=== PATIENT | female | born 1990 | race Caucasian/White ===

== ENCOUNTER 2016-08-15 20:44 | Emergency (ER) | payer OTHER ==
[~2016-08-15] VITALS: Ht 157.5 cm; Wt 90.7 kg
[~2016-08-15 20:44] MED LIST: ACET500C PO; ACET50TA PO; CYAN1000 IM; DEPO PROVERA INJ; FERR325T OR; IBUP800T PO; MULTCAP PO; MULTIVIT PO; NEUR300C PO; PAME25CA PO
[2016-08-15] MEDS ORDERED: PRE-TAB3 PO (20:54)
[2016-08-15 22:21] LABS: CONTROL LINE HCG INT CTR LINE PRESENT
[2016-08-15] MEDS ORDERED: NS 1,000 ML IV ONE (22:45)
[2016-08-15 22:50] LABS: HCG, SERUM QUANTITATIVE 1586 MIU/ML
[2016-08-15 22:59] LABS: BASO % 0.5 % (0.0-1.0); EOS # 0.2 K/mm3 (0.0-0.50); EOS % 2.1 % (0.0-3.0); LARGE UNSTAINED CELL # 0.1 K/mm3 (0.0-0.4); LARGE UNSTAINED CELL % 1.2 % (0.0-4.0); LYMPH # 2.7 K/mm3 (1.5-6.5); LYMPH % 28.6 % (24.0-44.0); MEAN CORPUSCULAR HEMOGLOBIN 29.9 pg (27.0-33.0); MEAN CORPUSCULAR HGB CONC 34.2 g/dl (32.0-36.5); MEAN CORPUSCULAR VOLUME 87.4 fl (80.0-96.0); MONO # 0.5 K/mm3 (0.0-0.8); MONO % 5.4 % (0.0-5.0); NEUTROPHILS # 5.6 K/mm3 (1.8-7.7); NEUTROPHILS % 62.2 % (36.0-66.0); PLATELET COUNT, AUTOMATED 221 k/mm3 (150-450); RED CELL DISTRIBUTION WIDTH 12.1 % (11.5-14.5); WHITE BLOOD COUNT 8.9 K/mm3 (4.0-10.0)
--- NOTE | 2016-08-15 23:30 | REPUSA ---
Clinical history: cramping. Findings: Real-time transabdominal and transvaginal ultrasound images of the pelvis were obtained. An anteverted uterus is noted, measuring 8.7 x 4.8 x 6.0 cm. The uterus demonstrates normal echotexture and echogenicity. There is an intrauterine gestational sac with a mean sac diameter 5.2 mm. No pole or yolk sac is identified at this time. The right ovary measures 3.9 x 1.8 x 2.3 cm. A simple r ight ovarian cyst measures 1.9 cm. The left ovary measures 3.1 x 2.1 x 2.2 cm. No adnexal masses are seen. Color Doppler flow is seen within both ovaries. There is no evidence of free fluid. Impression: 1. Single intrauterine gestational sac measuring 5 weeks 2 days by ultrasound measurements. No pole is seen at this time, likely because of the early age of the gestation. If there is continued cl inical concern, follow-up with serial serum beta hCG levels could be performed. 2. Right ovarian corpus luteum cyst.
[2016-08-16] MEDS ORDERED: MACR100C3 PO (00:10)
[2016-08-16 00:15] VITALS: BP 155/85
[2016-08-16] MEDS ORDERED: NITROFURANTOIN (MACROBID) 100 MG CAP PO ONE (00:15)
== END 2016-08-16 00:21 | disposition home or self-care (01) ==
LOC: M ED 22:39
DX: O26.891 Other specified pregnancy related conditions, first trimester (principal); O23.41 Unspecified infection of urinary tract in pregnancy, first trimester; Z3A.01 Less than 8 weeks gestation of pregnancy; Z88.0 Allergy status to penicillin; Z87.59 Personal history of other complications of pregnancy, childbirth and the puerperium

== ENCOUNTER → 2016-08-27 | Outpatient (CLI) | payer OTHER ==
[~2016-08-27] MED LIST changes: +MACR100C3 PO; +PRE-TAB3 PO
[2016-08-27 20:33] LABS: BASO # 0.1 K/mm3 (0.0-0.2); BASO % 0.7 % (0.0-1.0); EOS # 0.2 K/mm3 (0.0-0.50); EOS % 2.2 % (0.0-3.0); LARGE UNSTAINED CELL # 0.1 K/mm3 (0.0-0.4); LARGE UNSTAINED CELL % 1.3 % (0.0-4.0); LYMPH # 2.2 K/mm3 (1.5-6.5); LYMPH % 27.4 % (24.0-44.0); MEAN CORPUSCULAR HGB CONC 32.7 g/dl (32.0-36.5); MEAN CORPUSCULAR VOLUME 88.6 fl (80.0-96.0); MONO # 0.4 K/mm3 (0.0-0.8); MONO % 5.1 % (0.0-5.0); NEUTROPHILS # 5.2 K/mm3 (1.8-7.7); NEUTROPHILS % 63.3 % (36.0-66.0); PLATELET COUNT, AUTOMATED 201 k/mm3 (150-450); RED CELL DISTRIBUTION WIDTH 12.3 % (11.5-14.5); WHITE BLOOD COUNT 8.1 K/mm3 (4.0-10.0)
[2016-08-28 10:05] LABS: HBsAg Prenatal NEGATIVE (NEGATIVE)
== END ==
LOC: M SMT 12:05
PROVIDERS: ATTEND Advanced Practice Midwife
DX: Z34.81 Encounter for supervision of other normal pregnancy, first trimester (principal)

== ENCOUNTER 2016-09-09 20:18 | Emergency (ER) | payer OTHER ==
[~2016-09-09] VITALS: Ht 160 cm; Wt 95.3 kg
[2016-09-09 21:37] LABS: BASO % 0.2 % (0.0-1.0); EOS # 0.2 K/mm3 (0.0-0.50); EOS % 2.3 % (0.0-3.0); LARGE UNSTAINED CELL # 0.1 K/mm3 (0.0-0.4); LARGE UNSTAINED CELL % 1.1 % (0.0-4.0); LYMPH # 2.2 K/mm3 (1.5-6.5); LYMPH % 23.9 % (24.0-44.0); MEAN CORPUSCULAR HEMOGLOBIN 30.8 pg (27.0-33.0); MEAN CORPUSCULAR HGB CONC 35.1 g/dl (32.0-36.5); MEAN CORPUSCULAR VOLUME 87.7 fl (80.0-96.0); MONO # 0.4 K/mm3 (0.0-0.8); MONO % 4.3 % (0.0-5.0); NEUTROPHILS # 6.2 K/mm3 (1.8-7.7); NEUTROPHILS % 68.1 % (36.0-66.0); PLATELET COUNT, AUTOMATED 239 k/mm3 (150-450); RED CELL DISTRIBUTION WIDTH 12.3 % (11.5-14.5); WHITE BLOOD COUNT 9.1 K/mm3 (4.0-10.0)
--- NOTE | 2016-09-09 22:00 | REPUSA ---
Clinical history: Pain. Findings: Real-time transabdominal ultrasound images of the pelvis were obtained. There is a single l carolina intrauterine demonstrated. The crown rump length measures 2.1 cm. heart rate cristina sures 173 bpm. There is no evidence of a subchorionic hemorrhage. The right ovary measures 3.2 x 2.0 x 2.5 cm. The left ovary measures 3.4 x 1.5 x 2.5 cm. The uterus is unremarkable, measuring 9.8 x 7.1 cm. There is no evidence of free fluid. Impression: Single live intrauterine measuring 8 weeks 5 days with a heart rate of 17 3 bpm. Estimated due date is 04/16/2017.
[2016-09-10] MEDS ORDERED: FLAG500T PO (00:22)
[2016-09-10 00:28] VITALS: BP 118/67
[2016-09-10] MEDS ORDERED: RHOGAM 300 MCG (1500 IU) INJ (J2790) IM SCH (00:30)
== END 2016-09-10 00:41 | disposition home or self-care (01) ==
LOC: M ED 21:39
DX: O20.0 Threatened abortion (principal); O23.591 Infection of other part of genital tract in pregnancy, first trimester; O98.311 Other infections with a predominantly sexual mode of transmission complicating pregnancy, first trimester; A59.9 Trichomoniasis, unspecified; Z88.0 Allergy status to penicillin; Z3A.08 8 weeks gestation of pregnancy
CPT/HCPCS: 36415; 76801; 84702; 85025; 86850; 86900; 86901; 87210; 87491; 87591; 96372; 99284; J2790

== ENCOUNTER 2016-10-07 20:11 | Emergency (ER) | payer OTHER ==
[~2016-10-07] VITALS: Ht 160 cm; Wt 90.7 kg
[2016-10-07 20:11] VITALS: BP 139/85
[~2016-10-07 20:11] MED LIST changes: +FLAG500T PO
== END 2016-10-07 22:30 | disposition left against medical advice (07) ==
LOC: M ED 21:43
DX: Z53.29 Procedure and treatment not carried out because of patient's decision for other reasons (principal)

== ENCOUNTER 2016-10-08 13:13 | Emergency (ER) | payer OTHER ==
[~2016-10-08] VITALS: Ht 160 cm; Wt 95.3 kg
[2016-10-08 16:32] VITALS: BP 129/67
--- NOTE | 2016-10-08 16:34 | REP ---
Clinical: Left hip pain. Injury. Technique: Neutral and frog lateral views of the left hip. Findings: No acute fracture dislocation. Skeletal structures, joint spaces, and surrounding soft tissues are normal. Impression: Normal left hip radiographs. No acute fracture dislocation. Signed by Esteban Aranda MD 10/08/2016 04:20 P
== END 2016-10-08 16:33 | disposition home or self-care (01) ==
LOC: M ED 14:47
DX: O99.89 Other specified diseases and conditions complicating pregnancy, childbirth and the puerperium (principal); S76.012A Strain of muscle, fascia and tendon of left hip, initial encounter; W19.XXXA Unspecified fall, initial encounter; Y92.099 Unspecified place in other non-institutional residence as the place of occurrence of the external cause; Y93.89 Activity, other specified; Y99.9 Unspecified external cause status; F41.9 Anxiety disorder, unspecified; G43.909 Migraine, unspecified, not intractable, without status migrainosus; Z79.899 Other long term (current) drug therapy; Z88.0 Allergy status to penicillin

== ENCOUNTER → 2016-11-14 | Outpatient (CLI) | payer OTHER ==
[~2016-11-14] MED LIST changes: -MACR100C3 PO; +MACR100C43 PO; +RANI15TA PO
--- NOTE | 2016-11-14 11:48 | REP ---
Clinical: Anatomical evaluation. Comparison: 09/09/2016 . Findings: Examination demonstrates a single live intrauterine in cephalic presentation. motion is identified by technologist. Placenta is noted posteriorly and grade zero without evidence for placenta previa or abruption. Amniotic fluid volume is normal. Cervix measures 4.2 cm in length and appears closed. No evidence for nuchal cord. Gestational age by LMP 21 weeks 6 days with TIM 03/21/2017 . Gestational age by current measurements 18 weeks 3 days with TIM 04/14/2017 . FHR equals 153 beats per minute. BPD 4.2 cm 18 weeks 5 days HC 15.0 cm 18 weeks 1 day AC 12.7 cm 18 weeks 2 days FL 2.9 cm 19 weeks 0 days HL 2.8 cm 18 weeks 6 days HC/AC ratio 1.19 Estimated weight 247 grams ( 62nd percentile). Anatomical assessment demonstrates normal structures including cranium, choroid plexus, cavum, cerebellum/posterior fossa, facial features, lungs, four-chamber heart/ventricular outflow tracts, diaphragm, stomach, cord insertion/three-vessel cord, kidneys/bladder, spine, and extremities. Impression: Single live intrauterine in cephalic presentation demonstrating appropriate interval growth. Anatomical assessment is complete and normal. No gross abnormalities are identified. Signed by Esteban Aranda MD 11/14/2016 11:39 A
== END ==
LOC: M SMT 10:00
PROVIDERS: ATTEND Advanced Practice Midwife
DX: Z36 Encounter for antenatal screening of mother (principal)

== ENCOUNTER 2017-01-23 22:49 | Outpatient (CLI) | payer OTHER ==
[~2017-01-23] VITALS: Ht 160 cm; Wt 94.0 kg
[~2017-01-23 22:49] MED LIST changes: -RANI15TA PO
[2017-01-23 23:04] VITALS: BP 126/73
[2017-01-23 23:34] LABS: MEAN CORPUSCULAR HEMOGLOBIN 29.6 pg (27.0-33.0); MEAN CORPUSCULAR HGB CONC 34.1 g/dl (32.0-36.5); MEAN CORPUSCULAR VOLUME 86.9 fl (80.0-96.0); RED CELL DISTRIBUTION WIDTH 13.3 % (11.5-14.5); WHITE BLOOD COUNT 11.5 K/mm3 (4.0-10.0)
[2017-01-23 23:42] LABS: INR 0.92
[2017-01-24 00:21] LABS: ALBUMIN 2.7 GM/DL (3.2-5.2); ALBUMIN/GLOBULIN RATIO 0.79 (1.00-1.93); ALKALINE PHOSPHATASE 76 U/L (45-117); ALT/SGPT 17 U/L (12-78); ANION GAP 9 MEQ/L (8-16); AST/SGOT 9 U/L (15-37); BILIRUBIN,TOTAL 0.2 MG/DL (0.2-1.0); BLOOD UREA NITROGEN 7 MG/DL (7-18); CALCIUM LEVEL 8.1 MG/DL (8.5-10.1); CARBON DIOXIDE LEVEL 23 MEQ/L (21-32); CHLORIDE LEVEL 107 MEQ/L (98-107); CREATININE FOR GFR 0.42 MG/DL (0.55-1.02); GLOMERULAR FILTRATION RATE > 60.0 (>60); GLUCOSE, FASTING 109 MG/DL (70-105); MAGNESIUM LEVEL 1.8 MG/DL (1.8-2.4); POTASSIUM SERUM 3.8 MEQ/L (3.5-5.1); SODIUM LEVEL 139 MEQ/L (136-145); TOTAL PROTEIN 6.1 GM/DL (6.4-8.2)
[2017-01-24] MEDS ORDERED: RANI15TA PO (02:14)
== END 2017-01-24 02:10 | disposition home or self-care (01) ==
LOC: M LDO 22:49
PROVIDERS: ATTEND Obstetrics & Gynecology
DX: O26.893 Other specified pregnancy related conditions, third trimester (principal); Z3A.28 28 weeks gestation of pregnancy; R10.12 Left upper quadrant pain; R10.13 Epigastric pain; Z88.0 Allergy status to penicillin

== ENCOUNTER → 2017-01-23 | Outpatient (CLI) | payer OTHER ==
[2017-01-23 14:10] LABS: MEAN CORPUSCULAR VOLUME 88.1 fl (80.0-96.0); RED CELL DISTRIBUTION WIDTH 13.1 % (11.5-14.5)
== END ==
LOC: M SMT 10:31
PROVIDERS: ATTEND Obstetrics & Gynecology
DX: Z34.82 Encounter for supervision of other normal pregnancy, second trimester (principal)

== ENCOUNTER 2017-04-05 23:28 | Inpatient (IN) | payer OTHER ==
[~2017-04-05] VITALS: Ht 157.5 cm; Wt 102.0 kg
[~2017-04-05 23:28] MED LIST changes: +RANI15TA PO
[2017-04-05 23:44] VITALS: BP 121/67
[2017-04-06] VITALS (50 sets, daily range): BP systolic 83–133; BP diastolic 46–80
[2017-04-06] MEDS ORDERED: ACET50TA PO (00:31)
[2017-04-06 01:32] LABS: MEAN CORPUSCULAR HEMOGLOBIN 29.8 pg (27.0-33.0); MEAN CORPUSCULAR VOLUME 87.4 fl (80.0-96.0); PLATELET COUNT, AUTOMATED 275 10^3/uL (150-450); RED CELL DISTRIBUTION WIDTH 13.6 % (11.5-14.5); WHITE BLOOD COUNT 13.2 10^3/uL (4.0-10.0)
[2017-04-06] MEDS ORDERED: LR 1,000 ML IV SCH (06:13)
[2017-04-06] MEDS ORDERED: OXYTOCIN DRIP 30 UNITS in APPROPRIATE DILUENT 1 EA IV SCH ×2 (06:15→16:34)
--- NOTE | 2017-04-06 07:49 | HPE ---
DATE OF ADMISSION: 04/06/2017 REASON FOR ADMISSION: Spontaneous rupture of membranes. HISTORY OF PRESENT ILLNESS: Ms. Marquez is 27-year-old 3, para 1, who presents at 38 weeks 2 days estimated gestational age by a first trimester ultrasound with complaints of leakage of clear fluid she reports at approximately at 10 p.m. and three large gushes of clear fluid. Reports irregular contractions. Denies any vaginal bleeding. Reports active movement. Her course has been unremarkable. She initiated care in the first trimester and has been appropriate throughout. PAST MEDICAL HISTORY: None. PAST SURGICAL HISTORY: She has had tonsillectomy, adenoidectomy and an appendectomy. Her medications is vitamins. She has allergies to PENICILLIN. OBSTETRICAL HISTORY: She is 3, para 1. She has had one term vaginal delivery proven to 6 pounds 4 ounces and had one first trimester miscarriage. SOCIAL HISTORY: She denies any alcohol, tobacco or drug use during the . On physical exam, her vital signs are stable. Stable. She is afebrile. She has a category 1 rate tracing with irregular contractions on tachometer. General appearance is well appearing, no acute distress. Her lungs are clear to auscultation bilaterally. Cardiovascular: Heart regular rate and rhythm. Her abdomen is gravid and nontender. Estimated weight (EFW) 3200 grams. Cervical exam: She is grossly ruptured. She is 2 cm dilated, 50% effaced, minus 1 station. LABS: Her blood type is A negative. Antibody screen is negative. Rubella is immune. RPR is nonreactive. Hepatitis surface antigen is negative. HIV is negative. Hepatitis C is nonreactive. Chlamydia and gonorrhea screens are negative. She had a normal 1-hour Glucola of 93 and she is GBS negative. ASSESSMENT: 1. Ms. Marquez is a 27-year-old, 3, para 1, at 38 weeks 2 days estimated gestational age, with spontaneous rupture of membranes. 2. Reassuring status. Plan is to admit to: 1. Labor and delivery, complete blood count (CBC), rapid plasma reagin (RPR), type and screen, urine toxicology screen. 2. Patient has been thoroughly counseled in regards to procedures and medications used in labor and delivery. She desires to proceed with admission. 3. Patient is a good candidate for an epidural. 4. Anticipate spontaneous vaginal delivery.
[2017-04-06] MEDS: PRENATAL VITAMINS CHEWABLE TABLET PO SCH (09:00)
[2017-04-06] MEDS ORDERED: FENTANYL 2MCG/ML ROPIVACAINE 0.2% IN 0.9% NACL 200ML IVBAG As Ordered ONE (11:34)
[2017-04-06] MEDS ORDERED: ePHEDrine SULFATE 25 MG/5 ML(5MG/ML) SYRINGE As Ordered ONE (12:42)
[2017-04-06] MEDS ORDERED: ePHEDrine SULFATE 25 MG/5 ML(5MG/ML) SYRINGE IV PRN (13:15)
[2017-04-06] MEDS ORDERED: NALOXONE INJ 0.4 MG/1 ML VIAL (J2310) IV PRN (13:15)
[2017-04-06] MEDS ORDERED: EPIDURAL/PCA KEYS XX PRN (13:15)
[2017-04-06] MEDS ORDERED: FENTANYL/ROPIVACAINE/NACL BAG 200 ML EPIDURAL SCH (13:15)
[2017-04-06] MEDS ORDERED: EPIDURAL COMMENT XX SCH (13:15)
[2017-04-06] MEDS ORDERED: ONDANSETRON 4MG/2ML VIAL (J2405) IV PRN (13:15)
[2017-04-06] MEDS ORDERED: REFRIGERATOR IV KEYS XX PRN (13:15)
[2017-04-06] MEDS ORDERED: diphenhydrAMINE INJ 50MG/ML VIAL (J1200) IV PRN (13:15)
[2017-04-06] MEDS ORDERED: LACTATED RINGER'S 1000 ML IV PRN (13:15)
--- NOTE | 2017-04-06 16:38 | DN ---
DATE OF DELIVERY: 04/06/2017 TIME OF : 1521 hours. GENDER: Male. SCORES: 9 and 9. WEIGHT: 3580 grams or 7 pounds 14 ounces. LACERATIONS: None. ANESTHESIA: Epidural. COUNTS: Five laparotomy sponges accounted for prior to and after delivery. DELIVERY NOTE: On 04/06/2017, at 1521 hours, Ms. Marquez, a 27-year-old, 3, now para 2, had a spontaneous vaginal delivery of a live born male infant, scores 9 and 9, weight 3580 grams or 7 pounds 14 ounces. Head was delivered occiput anterior (OA) over an intact perineum. There was a nuchal cord which was manually reduced followed by delivery of left anterior shoulder, right posterior shoulder, and corpus. was handed to mother with a good cry. Cord was clamped times two and was cut by the father of the baby under my direction. Cord blood was then obtained. Placenta was then drained and delivered grossly intact. A premixed bag of 500 mL of normal saline with 30 units of Pitocin was then bolused, along with uterine massage until the uterus was firm. On inspection, cervix, vagina, and perineum was grossly intact and hemostatic. Mother and baby recovering in stable condition. The couple has decided to name their son Sudarshan.
[2017-04-06] MEDS ORDERED: MEASLES,MUMPS,RUBELLA VACCINE INJ (MMR-II) (90707) SC SCH (16:45)
[2017-04-06] MEDS ORDERED: ANUSOL HC CREAM 30GM TOP PRN (16:45)
[2017-04-06] MEDS ORDERED: METHYLERGONOVINE MALEATE 0.2 MG TAB PO PRN (16:45)
[2017-04-06] MEDS ORDERED: MOM 30ML SUSPENSION UDC PO PRN (16:45)
[2017-04-06] MEDS ORDERED: DOCUSATE SODIUM 100 MG CAP PO PRN (16:45)
[2017-04-06] MEDS ORDERED: DIBUCAINE 1% OINTMENT 30GM TOP PRN (16:45)
[2017-04-06] MEDS ORDERED: RHOGAM 300 MCG (1500 IU) INJ (J2790) IM SCH (16:45)
[2017-04-06] MEDS: IBUPROFEN 800 MG TAB PO PRN (22:24)
[2017-04-07] MEDS: IBUPROFEN 800 MG TAB PO PRN ×2 (05:57→16:44)
[2017-04-07] MEDS: ACETAMINOPHEN 500 MG TAB PO PRN ×3 (05:58→23:57)
[2017-04-07 06:10] VITALS: BP 113/57
[2017-04-07] MEDS: PRENATAL VITAMINS CHEWABLE TABLET PO SCH (08:05)
[2017-04-07 17:56] VITALS: BP 121/66
[2017-04-08 06:00] VITALS: BP 119/65
[2017-04-08] MEDS: PRENATAL VITAMINS CHEWABLE TABLET PO SCH (08:43)
[2017-04-08] MEDS: IBUPROFEN 800 MG TAB PO PRN (08:43)
[2017-04-08] MEDS ORDERED: IBUP-1114 PO (11:10)
[2017-04-08] MEDS ORDERED: ACET50TA PO (11:10)
== END 2017-04-08 13:15 | disposition home or self-care (01) | DRG 775 ==
LOC: M LDO 23:28 → M LDI 04-06 00:04 → M OBS 04-06 17:24
PROVIDERS: ADMIT Obstetrics & Gynecology; ATTEND Obstetrics & Gynecology
PROC: 10E0XZZ Delivery of Products of Conception, External Approach (ICD-10-PCS; principal; 2017-04-06)
PROC: 30233S1 Transfusion of Nonautologous Globulin into Peripheral Vein, Percutaneous Approach (ICD-10-PCS; 2017-04-07)
DX: O69.82X0 Labor and delivery complicated by other cord entanglement, without compression, not applicable or unspecified (principal); Z37.0 Single live birth; Z3A.38 38 weeks gestation of pregnancy; Z88.0 Allergy status to penicillin

== ENCOUNTER → 2017-11-13 | Outpatient (REF) | payer OTHER | LOC: M LAB REF 13:05 | DX: L08.9 Local infection of the skin and subcutaneous tissue, unspecified (principal) ==

== ENCOUNTER → 2020-02-15 | Outpatient (REF) | payer OTHER, SELFPAY ==
[~2020-02-15] MED LIST changes: -ACET50TA PO; +IBUP-1114 PO; +MAPA500T17 PO; +MAPA500T2 PO
== END ==
LOC: M SFHCWAGY 17:12
PROVIDERS: ATTEND Obstetrics & Gynecology
DX: Z12.4 Encounter for screening for malignant neoplasm of cervix (principal)

== ENCOUNTER → 2020-11-23 | Outpatient (REF) | payer OTHER ==
[2020-11-23 16:47] LABS: BASO % 0.5 % (0.0-1.0); EOS # 0.1 10^3/uL (0.0-0.5); EOS % 1.6 % (0.0-3.0); HEMOGLOBIN 12.7 g/dl (12.0-15.5); LYMPH # 2.3 10^3/uL (1.5-5.0); LYMPH % 28.2 % (24.0-44.0); MEAN CORPUSCULAR HEMOGLOBIN 27.7 pg (27.0-33.0); MEAN CORPUSCULAR HGB CONC 31.8 g/dl (32.0-36.5); MEAN CORPUSCULAR VOLUME 87.3 fl (80.0-96.0); MONO # 0.6 10^3/uL (0.0-0.8); MONO % 7.9 % (2.0-8.0); NEUTROPHILS % 61.4 % (36.0-66.0); PLATELET COUNT, AUTOMATED 208 10^3/uL (150-450); RED BLOOD COUNT 4.58 10^6/uL (4.00-5.40); WHITE BLOOD COUNT 8.1 10^3/uL (4.0-10.0)
[2020-11-23 17:12] LABS: ALBUMIN 3.8 GM/DL (3.2-5.2); ALT/SGPT 35 U/L (12-78); BILIRUBIN,TOTAL 0.4 MG/DL (0.2-1.0); BLOOD UREA NITROGEN 13 MG/DL (7-18); CALCIUM LEVEL 8.4 MG/DL (8.5-10.1); CARBON DIOXIDE LEVEL 26 MEQ/L (21-32); CHLORIDE LEVEL 107 MEQ/L (98-107); CREATININE FOR GFR 0.56 MG/DL (0.55-1.30); GLOMERULAR FILTRATION RATE > 60.0 (>60); GLUCOSE, FASTING 91 MG/DL (70-100); POTASSIUM SERUM 4.1 MEQ/L (3.5-5.1); SODIUM LEVEL 138 MEQ/L (136-145); TOTAL PROTEIN 7.2 GM/DL (6.4-8.2)
[2020-11-23 17:20] LABS: TOTAL 25(OH) VITAMIN D 20.4 NG/ML (30.0-100.0)
[2020-11-23 21:40] LABS: ERYTHROCYTE SEDIMENTATION RATE 30 mm/hr (0-20)
[2020-11-28 02:11] LABS: ANA (HEP2) Negative (.); CYCLIC CITRULLINATED PEPTIDE 8 units (0-19); Lyme Disease IgG/IgM Antibodie <0.91 ISR (0.00-0.90); Lyme Disease IgM Ab Quantitati <0.80 index (0.00-0.79)
== END ==
LOC: M SFHCCAPE 09:44
PROVIDERS: ATTEND Physician Assistant
DX: M79.672 Pain in left foot (principal); E55.9 Vitamin D deficiency, unspecified

== ENCOUNTER → 2021-01-30 | Outpatient (REF) | payer OTHER ==
[2021-01-31 16:41] LABS: C REACTIVE PROTEIN QUANTITATIV 1.24 MG/DL (0.00-0.30); RHEUMATOID FACTOR QUANT 74.2 IU/ML (<15.0)
[2021-02-03 00:07] LABS: ANA (HEP2) Negative (.); CYCLIC CITRULLINATED PEPTIDE 10 units (0-19)
== END ==
LOC: M SFHCCAPE 17:16
PROVIDERS: ATTEND Physician Assistant
DX: M25.50 Pain in unspecified joint (principal); M05.79 Rheumatoid arthritis with rheumatoid factor of multiple sites without organ or systems involvement

== ENCOUNTER → 2021-01-31 | Outpatient (CLI) | payer OTHER | LOC: M WUC 10:45 | PROVIDERS: ATTEND Physician Assistant | DX: M25.50 Pain in unspecified joint (principal); M05.79 Rheumatoid arthritis with rheumatoid factor of multiple sites without organ or systems involvement ==

== ENCOUNTER → 2021-02-01 | Outpatient (CLI) | payer OTHER ==
--- NOTE | 2021-02-01 13:59 | REP ---
INDICATION: POLYARTHRALGIA, RA COMPARISON: None. TECHNIQUE: Internal rotation, external rotation, and Y view right and left shoulder. FINDINGS: Left shoulder demonstrates normal acromioclavicular and glenohumeral joints. Subacromial space is normal. No periarticular calcifications or loose bodies. Surrounding soft tissues are normal. No acute fracture or dislocation. Right shoulder demonstrates normal acromioclavicular and glenohumeral joints. Subacromial space is normal. No periarticular calcifications or loose bodies. Surrounding soft tissues are normal. No acute fracture or dislocation. IMPRESSION: Normal symmetric bilateral shoulder radiographs. <Electronically signed by Esteban Aranda > 02/01/21 [id number]
--- NOTE | 2021-02-01 14:01 | REP ---
INDICATION: POLYARTHRALGIA, RA. COMPARISON: None. TECHNIQUE: Four views bilateral FINDINGS: No acute fracture or destructive osseous lesion. The mortise is intact. Bilateral . There is a small plantar calcaneal heel spur on the left. IMPRESSION: Within normal limits. There is a small plantar calcaneal heel spur on the left. <Electronically signed by Shola Shea > 02/01/21 [id number]
--- NOTE | 2021-02-01 14:20 | REP ---
INDICATION: POLYARTHRALGIA, RA COMPARISON: None. TECHNIQUE: AP, lateral, bilateral oblique views right and left wrist. FINDINGS: The carpal bones, surrounding osseous structures, soft tissues, and joint spaces are bilaterally symmetric, and essentially normal. There is no evidence for acute fracture or dislocation. No subcutaneous emphysema or radiodense foreign body. No significant arthritic degenerative changes noted. IMPRESSION: Symmetric age-appropriate bilateral wrist radiograph series. <Electronically signed by Esteban Aranda > 02/01/21 [id number]
--- NOTE | 2021-02-01 14:22 | REP ---
INDICATION: POLYARTHRALGIA, RA COMPARISON: None. TECHNIQUE: AP, lateral, bilateral oblique views right and left hand. FINDINGS: The osseous structures, joint spaces and surrounding soft tissues bilaterally symmetric and age-appropriate/normal. There is no evidence for acute fracture or dislocation. Surrounding soft tissues are unremarkable. No subcutaneous emphysema or radiodense foreign body. No significant arthritic/degenerative changes noted. IMPRESSION: Normal symmetric bilateral hand radiograph series. <Electronically signed by Esteban Aranda > 02/01/21 [id number]
--- NOTE | 2021-02-01 14:53 | REP ---
INDICATION: POLYARTHRALGIA, RA COMPARISON: None. TECHNIQUE: AP, lateral, bilateral oblique views right and left foot. FINDINGS: The osseous structures, joint spaces and surrounding soft tissues are bilaterally symmetric, intact and essentially normal. There is no evidence for acute fracture or dislocation. Surrounding soft tissues are unremarkable. No subcutaneous emphysema or radiodense foreign body. No overt arthritic/degenerative changes are appreciated. IMPRESSION: Normal bilateral foot radiograph series. <Electronically signed by Esteban Aranda > 02/01/21 [id number]
--- NOTE | 2021-02-01 15:59 | REP ---
INDICATION: POLYARTHRALGIA, RA. COMPARISON: None. TECHNIQUE: AP and bilateral oblique views of the sacroiliac joints. FINDINGS: The bilateral sacroiliac joints are relatively symmetric and age-appropriate. No significant periarticular sclerosis or fusion. The osseous structures are normal. IUD identified in relatively central satisfactory position. IMPRESSION: Symmetric age-appropriate bilateral sacroiliac joints. <Electronically signed by Esteban Aranda > 02/01/21 [id number]
--- NOTE | 2021-02-01 16:04 | REP ---
INDICATION: POLYARTHRALGIA, RA COMPARISON: None. TECHNIQUE: AP, lateral, bilateral oblique and sunrise views right and left knee. FINDINGS: The osseous structures, joint spaces and surrounding soft tissues are bilaterally symmetric, intact and age-appropriate. There is no evidence for acute fracture or dislocation. No joint effusion is appreciated. Surrounding soft tissues are unremarkable. No subcutaneous emphysema or radiodense foreign body. No significant arthritic or degenerative changes are appreciated. IMPRESSION: Normal bilateral knee radiograph examination. <Electronically signed by Esteban Aranda > 02/01/21 [id number]
--- NOTE | 2021-02-01 16:13 | REP ---
INDICATION: POLYARTHRALGIA, RA COMPARISON: None. TECHNIQUE: AP and frog-lateral views of the right and left hip FINDINGS: The bilateral osseous structures, joint spaces, and surrounding soft tissues are relatively symmetric and age-appropriate. No evidence for acute or healed injury. No overt arthritic or degenerative changes. No abnormal soft tissue calcifications. IMPRESSION: Normal symmetric bilateral hip radiograph series. <Electronically signed by Esteban Aranda > 02/01/21 [id number]
--- NOTE | 2021-02-01 16:17 | REP ---
INDICATION: POLYARTHRALGIA, RA COMPARISON: None. TECHNIQUE: AP, lateral, bilateral oblique, and coned-down views of the lumbar spine. FINDINGS: Alignment and lordosis maintained. Vertebral bodies are intact. No acute fracture/compression injury or subluxation. Disc spaces are relatively normal/age-appropriate. No obvious spondylolysis or spondylolisthesis. IMPRESSION: Normal Lumbosacral Spine series. <Electronically signed by Esteban Aranda > 02/01/21 [id number]
--- NOTE | 2021-02-01 16:28 | REP ---
INDICATION: POLYARTHRALGIA, RA. COMPARISON: None. TECHNIQUE: Eight views FINDINGS: The disc spaces are symmetric and well maintained throughout. Vertebral body height and alignment is within normal limits. There is no evidence of limitation of flexion and extension radiographically. The intervertebral foramina are ample bilaterally in the neural canal does not appear to be encroached upon. Secondary to the superimposition of osseous structures and or dentition on the open-mouth view the dens cannot be effectively evaluated. IMPRESSION: Within normal limits with limitation as described above. <Electronically signed by Shola Shea > 02/01/21 [id number]
== END ==
LOC: M WUC 12:48
PROVIDERS: ATTEND Physician Assistant
DX: M25.50 Pain in unspecified joint (principal); M05.79 Rheumatoid arthritis with rheumatoid factor of multiple sites without organ or systems involvement

== ENCOUNTER → 2021-04-17 | Outpatient (REF) | payer OTHER ==
[2021-04-17 17:00] LABS: GC DNA AMPLIFICATION NEGATIVE (NEGATIVE)
== END ==
LOC: M SFHCWAGY 15:00
PROVIDERS: ATTEND Obstetrics & Gynecology
DX: Z12.4 Encounter for screening for malignant neoplasm of cervix (principal); N76.0 Acute vaginitis

== ENCOUNTER → 2022-02-13 | Outpatient (REF) | payer OTHER ==
[2022-02-13 17:13] LABS: GC DNA AMPLIFICATION NEGATIVE (NEGATIVE)
== END ==
LOC: M PLALAB 14:07
PROVIDERS: ATTEND Advanced Practice Midwife
DX: O99.211 Obesity complicating pregnancy, first trimester (principal); Z3A.00 Weeks of gestation of pregnancy not specified

== ENCOUNTER → 2022-03-07 | Outpatient (CLI) | payer OTHER ==
[2022-03-07 14:05] LABS: HEMATOCRIT 36.3 % (36.0-47.0); MEAN CORPUSCULAR HEMOGLOBIN 28.6 pg (27.0-33.0); MEAN CORPUSCULAR HGB CONC 33.1 g/dl (32.0-36.5); MEAN CORPUSCULAR VOLUME 86.6 fl (80.0-96.0); PLATELET COUNT, AUTOMATED 171 10^3/uL (150-450); RED BLOOD COUNT 4.19 10^6/uL (4.00-5.40); WHITE BLOOD COUNT 8.4 10^3/uL (4.0-10.0)
== END ==
LOC: M PLALAB 10:15
PROVIDERS: ATTEND Advanced Practice Midwife
DX: O99.211 Obesity complicating pregnancy, first trimester (principal); Z3A.00 Weeks of gestation of pregnancy not specified

== ENCOUNTER → 2022-04-08 | Outpatient (CLI) | payer OTHER ==
[2022-04-08 16:36] LABS: HEPATITIS C VIRUS ABY INDEX 0.1 INDEX (<0.8); HIV 1&2 SCREEN CENTAUR NEGATIVE (NEGATIVE)
== END ==
LOC: M PLALAB 13:28
PROVIDERS: ATTEND Advanced Practice Midwife
DX: O99.211 Obesity complicating pregnancy, first trimester (principal); Z3A.00 Weeks of gestation of pregnancy not specified

== ENCOUNTER → 2022-04-19 | Outpatient (CLI) | payer OTHER | LOC: M WHC 09:02 | PROVIDERS: ATTEND Advanced Practice Midwife | DX: O99.212 Obesity complicating pregnancy, second trimester (principal) ==

== ENCOUNTER → 2022-05-08 | Outpatient (REF) | payer OTHER | LOC: M SFHCWAGY 17:02 | PROVIDERS: ATTEND Advanced Practice Midwife | DX: R30.0 Dysuria (principal) ==

== ENCOUNTER → 2022-05-22 | Outpatient (CLI) | payer OTHER | LOC: M WHC 08:50 | PROVIDERS: ATTEND Advanced Practice Midwife | DX: O99.342 Other mental disorders complicating pregnancy, second trimester (principal); Z3A.24 24 weeks gestation of pregnancy; O32.1XX0 Maternal care for breech presentation, not applicable or unspecified ==

== ENCOUNTER → 2022-06-05 | Outpatient (REF) | payer OTHER ==
[2022-06-05 15:39] LABS: TOTAL PROTEIN,RANDOM URINE 27.3 MG/DL (0.0-14.0)
[2022-06-05 15:44] LABS: CREATININE,RANDOM URINE 205.2 MG/DL
== END ==
LOC: M PLALAB 12:18
PROVIDERS: ATTEND Advanced Practice Midwife
DX: R30.0 Dysuria (principal); O16.2 Unspecified maternal hypertension, second trimester

== ENCOUNTER → 2022-06-05 | Outpatient (CLI) | payer OTHER ==
[2022-06-05 15:21] LABS: URIC ACID 3.9 MG/DL (3.1-7.8)
[2022-06-05 15:23] LABS: LDH LACTATE DEHYDROGENASE 145 U/L (120-246)
[2022-06-05 15:25] LABS: ALT/SGPT < 9 U/L (7.0-40); AST/SGOT 12 U/L (<34); BILIRUBIN,TOTAL 0.3 MG/DL (0.3-1.2); CREATININE FOR GFR 0.56 MG/DL (0.55-1.30); GLOMERULAR FILTRATION RATE > 60.0 (>60)
[2022-06-05 15:27] LABS: HEMATOCRIT 35.2 % (36.0-47.0); HEMOGLOBIN 11.4 g/dl (12.0-15.5); MEAN CORPUSCULAR HEMOGLOBIN 28.5 pg (27.0-33.0); MEAN CORPUSCULAR HGB CONC 32.4 g/dl (32.0-36.5); PLATELET COUNT, AUTOMATED 250 10^3/uL (150-450); WHITE BLOOD COUNT 10.9 10^3/uL (4.0-10.0)
== END ==
LOC: M PLALAB 11:38
PROVIDERS: ATTEND Advanced Practice Midwife
DX: O99.342 Other mental disorders complicating pregnancy, second trimester (principal); Z3A.00 Weeks of gestation of pregnancy not specified

== ENCOUNTER 2022-06-11 21:56 | Outpatient (CLI) | payer OTHER ==
[~2022-06-11] VITALS: Ht 157.5 cm; Wt 115.4 kg
[2022-06-11 22:28] VITALS: BP 122/64
[2022-06-11 23:09] VITALS: BP 132/77
== END 2022-06-11 23:11 | disposition home or self-care (01) ==
LOC: M LDO 21:56
PROVIDERS: ATTEND Obstetrics & Gynecology
DX: O13.2 Gestational [pregnancy-induced] hypertension without significant proteinuria, second trimester (principal); Z3A.27 27 weeks gestation of pregnancy

== ENCOUNTER → 2022-06-18 | Outpatient (CLI) | payer OTHER | LOC: M LAB 07:42 | PROVIDERS: ATTEND Advanced Practice Midwife | DX: O99.810 Abnormal glucose complicating pregnancy (principal); Z3A.00 Weeks of gestation of pregnancy not specified ==

== ENCOUNTER → 2022-07-16 | Outpatient (CLI) | payer OTHER | LOC: M WHC 09:32 | PROVIDERS: ATTEND Advanced Practice Midwife | DX: O13.3 Gestational [pregnancy-induced] hypertension without significant proteinuria, third trimester (principal); Z3A.32 32 weeks gestation of pregnancy ==

== ENCOUNTER → 2022-08-08 | Outpatient (REF) | payer OTHER | LOC: M SFHCWAGY 17:31 | PROVIDERS: ATTEND Advanced Practice Midwife | DX: O13.3 Gestational [pregnancy-induced] hypertension without significant proteinuria, third trimester (principal) ==

== ENCOUNTER → 2022-08-12 | Outpatient (CLI) | payer OTHER | LOC: M WHC 09:47 | PROVIDERS: ATTEND Advanced Practice Midwife | DX: O13.3 Gestational [pregnancy-induced] hypertension without significant proteinuria, third trimester (principal) ==

== ENCOUNTER 2022-10-02 06:30 | Day surgery (SDC) | payer OTHER ==
[~2022-10-02] VITALS: Ht 159 cm; Wt 106.6 kg
[~2022-10-02 06:30] MED LIST changes: +ACET-683 PO; +COLA100C5 PO; +HYDR-3363 PO; +IBUP-1022 PO; +LABE300T55 PO; +PRENTAB9 PO; +SERT-141 PO
[2022-10-02 07:13] LABS: HEMATOCRIT 36.3 % (36.0-47.0); HEMOGLOBIN 12.1 g/dl (12.0-15.5); MEAN CORPUSCULAR HEMOGLOBIN 28.1 pg (27.0-33.0); MEAN CORPUSCULAR HGB CONC 33.3 g/dl (32.0-36.5); MEAN CORPUSCULAR VOLUME 84.4 fl (80.0-96.0); PLATELET COUNT, AUTOMATED 255 10^3/uL (150-450); WHITE BLOOD COUNT 5.9 10^3/uL (4.0-10.0)
[2022-10-02] MEDS ORDERED: LR 1,000 ML IV SCH ×2 (07:20→08:55)
[2022-10-02] MEDS ORDERED: ONDANSETRON 4MG 2ML VIAL As Ordered ONE (07:22)
[2022-10-02] MEDS ORDERED: LIDOCAINE 2% 100MG/5ML SDV (FOR ANES.) As Ordered ONE (07:22)
[2022-10-02] MEDS ORDERED: propofoL 200 MG/20 ML VIAL As Ordered ONE (07:22)
[2022-10-02] MEDS ORDERED: ROCURONIUM BROMIDE 50MG/5ML VIAL As Ordered ONE (07:22)
[2022-10-02] MEDS ORDERED: fentaNYL 250 MCG/5 ML INJECTION As Ordered ONE (07:24)
[2022-10-02] MEDS ORDERED: BUPIVACAINE HCL 0.25% 30ML VIAL As Ordered ONE (07:24)
[2022-10-02] MEDS ORDERED: MIDAZOLAM INJ 2MG/2ML VIAL As Ordered ONE (07:25)
[2022-10-02] MEDS ORDERED: LACRILUBE (AKWA TEARS) OPHTH OINT 3.5GM As Ordered ONE (07:54)
[2022-10-02] MEDS ORDERED: ePHEDrine SULFATE 25 MG/5 ML(5MG/ML) SYRINGE As Ordered ONE ×2 (08:06→17:07)
[2022-10-02] MEDS ORDERED: ACETAMINOPHEN 1000MG 100ML IV BAG As Ordered ONE (08:24)
[2022-10-02] MEDS ORDERED: HYDROmorphone HCL 2MG/ML 1ML VIAL As Ordered ONE (08:24)
[2022-10-02] MEDS ORDERED: SUGAMMADEX SODIUM 500 MG/5 ML VIAL (BRIDION) As Ordered ONE (08:24)
[2022-10-02] MEDS ORDERED: KETOROLAC 60MG 2ML VIAL As Ordered ONE (08:30)
[2022-10-02] MEDS ORDERED: METOCLOPRAMIDE INJ 10MG/2ML VIAL As Ordered ONE (08:35)
[2022-10-02] MEDS ORDERED: oxyCODONE 5MG TAB PO PRN (08:55)
[2022-10-02] MEDS ORDERED: ONDANSETRON 4MG 2ML VIAL IV PRN (08:55)
[2022-10-02] MEDS ORDERED: HYDROMORPHONE HCL 0.5 MG/ 0.5 ML SYRINGE IV PRN ×2 (08:55→13:00)
[2022-10-02] MEDS ORDERED: fentaNYL 100 MCG/2 ML INJECTION IV PRN (08:55)
[2022-10-02 10:39] VITALS: BP 138/69
[2022-10-02] MEDS ORDERED: ACETAMINOPHEN 500 MG TAB PO PRN (14:30)
== END 2022-10-02 10:40 | disposition home or self-care (01) ==
LOC: M SDC 06:30
PROVIDERS: ATTEND Obstetrics & Gynecology
DX: Z30.2 Encounter for sterilization (principal); F41.9 Anxiety disorder, unspecified; Z87.891 Personal history of nicotine dependence; Z88.0 Allergy status to penicillin; Z79.899 Other long term (current) drug therapy
CPT/HCPCS: 36415; 58661; 81025; 85027; 86850; 86900; 86901; 88302; J0131; J1100; J1170; J1885; J2250; J2405; J2765; J3010

== ENCOUNTER → 2022-12-25 | Outpatient (REF) | payer OTHER | LOC: M PLALAB 13:25 | PROVIDERS: ATTEND Obstetrics & Gynecology | DX: Z12.4 Encounter for screening for malignant neoplasm of cervix (principal) ==